=== PATIENT | male | born 1990 | race Caucasian/White ===

== ENCOUNTER 2019-09-04 10:21 | Emergency (ER) | payer OTHER ==
[~2019-09-04] VITALS: Ht 182.9 cm; Wt 140.6 kg
[2019-09-04 12:04] VITALS: BP 146/84
== END 2019-09-04 12:04 | disposition home or self-care (01) ==
LOC: ER 10:21
DX: J98.9 Respiratory disorder, unspecified (principal); E66.9 Obesity, unspecified; J45.909 Unspecified asthma, uncomplicated; Z68.41 Body mass index [BMI] 40.0-44.9, adult